=== PATIENT | female | born 1985 | race Caucasian/White ===

== ENCOUNTER 2024-10-03 09:45 | Outpatient (CLI) | payer BC | END 2024-10-03 09:46 | disposition home or self-care (01) | LOC: NAV RAD 09:45 | PROVIDERS: ATTEND Family Medicine | DX: M54.32 Sciatica, left side (principal); M47.816 Spondylosis without myelopathy or radiculopathy, lumbar region; M43.8X6 Other specified deforming dorsopathies, lumbar region | CPT/HCPCS: 72100 ==